=== PATIENT | male | born 1970 | race Caucasian/White ===

== ENCOUNTER 2020-09-13 21:24 | Emergency (ER) | payer BC ==
[~2020-09-13 21:24] MED LIST: NAPROSYN500 MG PO; NAPROXEN500 M1 PO
== END 2020-09-13 22:47 | disposition home or self-care (01) ==
LOC: ER1 21:24
DX: T78.40XA Allergy, unspecified, initial encounter (principal); I10 Essential (primary) hypertension
CPT/HCPCS: 99283

== ENCOUNTER 2020-09-21 21:25 | Emergency (ER) | payer BC | END 2020-09-22 01:20 | disposition home or self-care (01) | LOC: ER1 21:25 | DX: M25.511 Pain in right shoulder (principal); I10 Essential (primary) hypertension | CPT/HCPCS: 71045; 73030; 93005; 99283 ==

== ENCOUNTER 2020-10-08 21:42 | Emergency (ER) | payer BC ==
[2020-10-09] MEDS ORDERED: DELSYM30 MG/5 ML PO (02:02)
== END 2020-10-09 02:04 | disposition home or self-care (01) ==
LOC: ER1 21:42
DX: U07.1 COVID-19 (principal); I10 Essential (primary) hypertension
CPT/HCPCS: 99284; U0002

== ENCOUNTER 2020-10-16 06:09 | Inpatient (IN) | payer BC ==
[~2020-10-16] VITALS: Ht 165.1 cm; Wt 96.2 kg
[~2020-10-16 06:09] MED LIST changes: +DELSYM30 MG/5 ML PO
[2020-10-16 07:09] LABS: HEMOGLOBIN 16.9 gm/dl (14.0-17.5); RED BLOOD COUNT 5.6 M/UL (4.20-5.50); WHITE BLOOD COUNT 8.2 K/UL (4.5-11.0)
[2020-10-16] MEDS ORDERED: AMLODIPINE BESYL5 MG PO (15:05)
[2020-10-16] MEDS ORDERED: ETODOLAC400 MG PO (15:06)
[2020-10-16] MEDS ORDERED: ROBAXIN 750 MG750 MG PO (15:06)
[2020-10-16] MEDS ORDERED: TYLENOL 8 HOUR650 MG PO (15:07)
[2020-10-16] MEDS ORDERED: ASPIRIN EC81 MG PO (15:07)
[2020-10-17 04:28] LABS: HEMOGLOBIN 15.8 gm/dl (14.0-17.5); RED BLOOD COUNT 5.21 M/UL (4.20-5.50)
[2020-10-17 04:50] LABS: WHITE BLOOD COUNT 5.9 K/UL (4.5-11.0)
[2020-10-17 04:53] LABS: BUN/CREATININE RATIO 15 (0-10)
[2020-10-19 06:45] LABS: HEMOGLOBIN 14.7 gm/dl (14.0-17.5); RED BLOOD COUNT 5.19 M/UL (4.20-5.50)
[2020-10-19 06:46] LABS: WHITE BLOOD COUNT 15.3 K/UL (4.5-11.0)
[2020-10-19 07:19] LABS: BUN/CREATININE RATIO 22 (0-10)
[2020-10-20 07:38] LABS: HEMOGLOBIN 15.4 gm/dl (14.0-17.5); RED BLOOD COUNT 5.52 M/UL (4.20-5.50); WHITE BLOOD COUNT 17.3 K/UL (4.5-11.0)
[2020-10-20 08:34] LABS: BUN/CREATININE RATIO 22 (0-10)
[2020-10-21 08:20] LABS: HEMOGLOBIN 16.9 gm/dl (14.0-17.5)
[2020-10-21 08:28] LABS: RED BLOOD COUNT 6.11 M/UL (4.20-5.50); WHITE BLOOD COUNT 23.3 K/UL (4.5-11.0)
[2020-10-21 08:51] LABS: BUN/CREATININE RATIO 31 (0-10)
[2020-10-22 07:19] LABS: HEMOGLOBIN 16.8 gm/dl (14.0-17.5); RED BLOOD COUNT 6.01 M/UL (4.20-5.50); WHITE BLOOD COUNT 23.2 K/UL (4.5-11.0)
[2020-10-22 07:33] LABS: BUN/CREATININE RATIO 28 (0-10)
[2020-10-23 08:20] LABS: HEMOGLOBIN 16.5 gm/dl (14.0-17.5); RED BLOOD COUNT 5.92 M/UL (4.20-5.50)
[2020-10-23 08:42] LABS: WHITE BLOOD COUNT 29.2 K/UL (4.5-11.0)
[2020-10-23 08:44] LABS: BUN/CREATININE RATIO 31 (0-10)
[2020-10-24 06:05] LABS: HEMOGLOBIN 16.6 gm/dl (14.0-17.5); RED BLOOD COUNT 5.86 M/UL (4.20-5.50)
[2020-10-24 06:14] LABS: WHITE BLOOD COUNT 32.9 K/UL (4.5-11.0)
[2020-10-24 06:35] LABS: BUN/CREATININE RATIO 28 (0-10)
--- NOTE | 2020-10-24 13:02 | NUR ---
reported to dr. yates patient elevated wbc with no new order received
[2020-10-24 15:19] LABS: HEMOGLOBIN 16.2 gm/dl (14.0-17.5); RED BLOOD COUNT 5.78 M/UL (4.20-5.50)
[2020-10-24 15:28] LABS: WHITE BLOOD COUNT 33.3 K/UL (4.5-11.0)
--- NOTE | 2020-10-24 15:52 | NUR ---
reported increase wbc to dr. yates with no new order received
[2020-10-25 09:33] LABS: HEMOGLOBIN 16.3 gm/dl (14.0-17.5); RED BLOOD COUNT 5.73 M/UL (4.20-5.50)
--- NOTE | 2020-10-25 09:43 | NUR ---
patient refused to take a bath. encourage with no success
[2020-10-25 09:49] LABS: BUN/CREATININE RATIO 30 (0-10)
[2020-10-25 10:21] LABS: WHITE BLOOD COUNT 32.1 K/UL (4.5-11.0)
--- NOTE | 2020-10-25 16:27 | NUR ---
aware of the wbc result
--- NOTE | 2020-10-25 16:52 | NUR ---
RT reported patient high flow nasal cannula 5L 40%. pulse ox 95% with no s/sx of respiratory distress noted
[2020-10-26 09:06] LABS: BUN/CREATININE RATIO 25 (0-10)
--- NOTE | 2020-10-26 12:54 | NUR ---
PATIENT ROOM AIR SAT 84%
[2020-10-27] MEDS ORDERED: TYLENOL 8 HOUR650 MG PO (16:33)
[2020-10-27] MEDS ORDERED: IPRAT-ALBUT 0.5-3 ML INH (16:33)
[2020-10-27] MEDS ORDERED: COMPACT COMPRE1 EACH MC (16:35)
== END 2020-10-27 19:31 | disposition home or self-care (01) | DRG 177 ==
LOC: ER1 06:09 → CDU 08:29 → M/S 08:29
PROVIDERS: Internal Medicine; Physician Assistant; ADMIT Internal Medicine
PROC: 8E0ZXY6 Isolation (ICD-10-PCS; principal; 2020-10-16)
PROC: 3E0333Z Introduction of Anti-inflammatory into Peripheral Vein, Percutaneous Approach (ICD-10-PCS; 2020-10-16)
PROC: XW033E5 Introduction of Remdesivir Anti-infective into Peripheral Vein, Percutaneous Approach, New Technology Group 5 (ICD-10-PCS; 2020-10-16)
PROC: 5A0945A Assistance with Respiratory Ventilation, 24-96 Consecutive Hours, High Flow/Velocity Cannula (ICD-10-PCS; 2020-10-17)
DX: U07.1 COVID-19 (principal); J96.01 Acute respiratory failure with hypoxia; J12.82 Pneumonia due to coronavirus disease 2019; N17.9 Acute kidney failure, unspecified; I10 Essential (primary) hypertension; T38.0X5A Adverse effect of glucocorticoids and synthetic analogues, initial encounter; G89.29 Other chronic pain; E86.1 Hypovolemia; E86.0 Dehydration; F41.9 Anxiety disorder, unspecified; F17.210 Nicotine dependence, cigarettes, uncomplicated; D69.6 Thrombocytopenia, unspecified; Z79.82 Long term (current) use of aspirin
CPT/HCPCS: 36415; 36600; 71045; 80048; 80053; 81001; 82550; 82553; 82803; 83036; 83605; 83615; 83735; 84484; 85007; 85025; 85027; 85379; 85610; 86140; 87040; 87081; 93005; 94640; 94660; 94664; 94760; 99285; J0456; J0696; J1100; J1335; J1650; J7030

== ENCOUNTER 2021-10-30 20:17 | Emergency (ER) | payer BC ==
[~2021-10-30 20:17] MED LIST changes: +AMLODIPINE BESYL5 MG PO; +ASPIRIN EC81 MG PO; +COMPACT COMPRE1 EACH MC; +ETODOLAC400 MG PO; +IPRAT-ALBUT 0.5-3 ML INH; +ROBAXIN 750 MG750 MG PO; +TYLENOL 8 HOUR650 MG PO
[2021-10-30 20:59] LABS: HEMOGLOBIN 17.1 gm/dl (14.0-17.5); RED BLOOD COUNT 5.62 M/UL (4.20-5.50); WHITE BLOOD COUNT 12.4 K/UL (4.5-11.0)
[2021-10-30 21:25] LABS: BUN/CREATININE RATIO 13 (0-10)
[2021-10-31] MEDS ORDERED: NAPROSYN500 MG PO (00:35)
== END 2021-10-31 00:55 | disposition home or self-care (01) ==
LOC: ER1 20:17
PROVIDERS: Physician Assistant
DX: R07.89 Other chest pain (principal); I10 Essential (primary) hypertension
CPT/HCPCS: 71045; 80053; 81001; 82150; 82550; 82553; 83690; 84484; 85025; 93005; 99285